=== PATIENT | female | born 1930 | race Caucasian/White ===

== ENCOUNTER → 2016-09-02 | Outpatient (CLI) | payer MEDICARE | END | disposition home or self-care (01) | LOC: PCVCCLINIC 12:54 | PROVIDERS: ATTEND Internal Medicine Cardiovascular Disease | DX: E78.00 Pure hypercholesterolemia, unspecified (principal); I77.9 Disorder of arteries and arterioles, unspecified; I25.10 Atherosclerotic heart disease of native coronary artery without angina pectoris; I49.5 Sick sinus syndrome; I70.1 Atherosclerosis of renal artery; I50.9 Heart failure, unspecified; I48.91 Unspecified atrial fibrillation; I73.9 Peripheral vascular disease, unspecified; Z95.1 Presence of aortocoronary bypass graft; Z95.0 Presence of cardiac pacemaker | CPT/HCPCS: 80061; 93005; G0463 ==

== ENCOUNTER → 2017-03-24 | Outpatient (CLI) | payer MEDICARE | END | disposition home or self-care (01) | LOC: PCVCCLINIC 13:31 | PROVIDERS: ATTEND Internal Medicine Cardiovascular Disease | DX: I25.10 Atherosclerotic heart disease of native coronary artery without angina pectoris (principal); I48.91 Unspecified atrial fibrillation; I10 Essential (primary) hypertension; E78.00 Pure hypercholesterolemia, unspecified; I87.2 Venous insufficiency (chronic) (peripheral); I49.5 Sick sinus syndrome; R07.9 Chest pain, unspecified; E11.9 Type 2 diabetes mellitus without complications; E03.9 Hypothyroidism, unspecified; I73.9 Peripheral vascular disease, unspecified; Z95.0 Presence of cardiac pacemaker; Z95.1 Presence of aortocoronary bypass graft; Z90.710 Acquired absence of both cervix and uterus; Z88.0 Allergy status to penicillin; Z88.1 Allergy status to other antibiotic agents; Z91.041 Radiographic dye allergy status | CPT/HCPCS: 93005; 93279; G0463 ==

== ENCOUNTER → 2017-04-03 | Outpatient (CLI) | payer MEDICARE ==
[~2017-04-03] MED LIST: REGADENOSON 0.4 MG/5 ML DISP.SYRIN. IV ONE
--- NOTE | 2017-04-03 09:11 | PCVCIMAG ---
EXAM: BILATERAL RENAL ULTRASOUND AND BILATERAL RENAL DUPLEX INDICATION: Hypertension FINDINGS: Right kidney: Length measures 10.5 cm. No hydronephrosis or extensive renal scarring. 1.7 x 1.4 cm benign cyst midpole. Right renal duplex: Adequate technical quality. 75% proximal renal artery stenosis. The aortic to renal artery ratio is 3.8. The renal vein is patent. Left kidney: Length measures 10.0 cm. No hydronephrosis or extensive renal scarring. 3.0 x 3.3 x 3.8 cm benign cyst upper pole. 3.4 x 3.6 x 5.1 cm benign cyst lower pole. Left renal duplex: Adequate technical quality. No sonographic evidence of renal artery stenosis. The aortic to renal artery ratio is 2.0. The renal vein is patent. Bladder: No obvious abnormalities. 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 No left renal artery stenosis. LOC:[place] [id number]
--- NOTE | 2017-04-03 15:02 | PCVCIMAG ---
APPROVED REPORT Exam: Nuclear Stress Test Indication: Chest pain, Atrial Fibrillation Patient Location: Out-Patient Stress Nurse: Amanda Patton RN, HIPOLITO Jolley Tech:Tianna ALETHA Glez Ht: 5 ft 0 in Wt: 156 lbs BSA: 1.68 m2 HR: 74 bpm BP: 163/70 mmHg BMI: 30.4 Rhythm: AFIB PACED Medical History Medical History: AFIB, PVD, CAD, Diabetes Medications: Xanax, Norvasc, Lipitor, Hydralazine, Toprol XL, Aldactone, Demadex Allergies: Many - None interfering Previous Cardiac Procedures: CABG Pretest Chest Pain Characteristics: NONE Exercise History: Sedentary Meds Held (24 hrs): Toprol XL, Demadex NM EXAM: Myocardial Perfusion REST/STRESS Imaging Protocol: Rest Tc-99m/Stress Tc-99m 1 day Resting Data Rest SPECT myocardial perfusion imaging was performed in supine position 45 minutes following the intravenous injection of 11.2 mCi of Tc-99m Sestamibi. Time of rest injection: 0900 Date: 04/03/2017 Administration Route: IV Administration Site: Right Hand Pharmacologic Stress Pharmacologic stress test was performed by injecting Regadenoson 0.4 mg IV push followed by the intravenous injection of 31.9 mCi of Pharmacologic stress test was performed by injecting mg IV push followed by the intravenous injection of mCi of Tc-99m Sestamibi. Time of stress injection: 1030 Date: 04/03/2017 Administration Route: IV Administration Site: Right Hand Gated Stress SPECT was performed 45 minutes after stress injection. The images were gated to evaluate regional wall motion and calculate left ventricular ejection fraction. Study Quality Study: Good Study Data Post stress, the left ventricular ejection was 65%.. SSS: 8 SRS: 14 SDS: 0 TID = 1.02. 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 No evidence of stress induced ischemia. 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 No evidence of stress induced ischemia. Post stress, the left ventricular ejection was 65%.. No change since prior study dated June 2015. Interpreted by: Julio Govea MD Electronically Approved: 04/03/2017 13:58:55 Stress Test Details Stress Test: Pharmacologic stress testing performed using 0.4 mg of regadenoson per 5 mL given IV over 10 seconds. Reason for pharmacologic stress test: physical limitation. HR Resting HR: 74 bpmMax Heart Rate (APMHR): 135 bpm Max HR Achieved: 72 bpmTarget HR (85% APMHR): 114 bpm % of APMHR: 53 Recovery HR: 75 bpm BP Resting BP: 163/70 mmHg Max BP: 187/74 mmHg ECG Resting ECG: Atrial Fibrillation, Paced Stress ECG: Atrial Fibrillation, Paced Arrhythmia: Isolated PVC Recovery ECG: Atrial Fibrillation, Paced Clinical Reason for Termination: Completed protocol Stress Symptoms: Dyspnea Exercise duration: 0 min 55 sec Symptoms resolved during recovery. Stress ECG Conclusion non diagnostic <Conclusion> non diagnostic
== END | disposition home or self-care (01) ==
LOC: PCVCIMAG 07:56
PROVIDERS: ATTEND Internal Medicine Cardiovascular Disease
DX: I12.9 Hypertensive chronic kidney disease with stage 1 through stage 4 chronic kidney disease, or unspecified chronic kidney disease (principal); N18.3 Chronic kidney disease, stage 3 (moderate); E11.22 Type 2 diabetes mellitus with diabetic chronic kidney disease; I70.1 Atherosclerosis of renal artery; N28.1 Cyst of kidney, acquired; I48.91 Unspecified atrial fibrillation; I73.9 Peripheral vascular disease, unspecified; I49.3 Ventricular premature depolarization; I25.10 Atherosclerotic heart disease of native coronary artery without angina pectoris; Z95.1 Presence of aortocoronary bypass graft
CPT/HCPCS: 76770; 78452; 93017; 93975; A9500; J2785

== ENCOUNTER → 2018-01-25 | Outpatient (CLI) | payer MEDICARE | END | disposition home or self-care (01) | LOC: PCVCIMAG 15:35 | DX: K55.1 Chronic vascular disorders of intestine (principal); I73.9 Peripheral vascular disease, unspecified; I48.91 Unspecified atrial fibrillation; I10 Essential (primary) hypertension; I25.10 Atherosclerotic heart disease of native coronary artery without angina pectoris; I87.2 Venous insufficiency (chronic) (peripheral); I70.1 Atherosclerosis of renal artery; E78.00 Pure hypercholesterolemia, unspecified; E11.9 Type 2 diabetes mellitus without complications; Z79.899 Other long term (current) drug therapy | CPT/HCPCS: 93975 ==